=== PATIENT | female | born 1980 | race Caucasian/White ===

== ENCOUNTER 2019-09-22 16:20 | Emergency (ER) | payer BC ==
[2019-09-22 16:29] VITALS: BP 102/67; PULSE 70; TEMP 98.4; BMI 31.7
--- NOTE | 2019-09-22 16:29 | PDOC ---
Rapid Medical Evaluation Chief Complaint: Abscess Boil Time Seen by Provider: 09/22/19 16:28 Medical Evaluation: Allergies Allergy/AdvReac Type Severity Reaction Status Date / Time No Known Allergies Allergy Verified 03/22/12 03:30 09/22/19 16:29 I have performed a brief in-person evaluation of this patient. The patient presents with a chief complaint of: left axillary abscess, went to urgent care yesterday, started on amox Pertinent physical exam findings: abscess to L axilla I have ordered the following: nothing The patient will proceed to the ED for further evaluation. Discharge Disposition - Discharge Dispostion Condition at time of disposition: Stable - Referrals - Patient Instructions - Post Discharge Activity
[2019-09-22] MEDS ORDERED: ACETAMINOPHEN 325 MG TABLET (FP) PO ONE (16:50)
--- NOTE | 2019-09-22 16:53 | PDOC ---
History of Present Illness - General Chief Complaint: Abscess Boil Stated Complaint: CIST LEFT ARMPIT Time Seen by Provider: 09/22/19 16:28 History Source: Patient - History of Present Illness Initial Comments: 09/22/19 17:51 Chief complaint: Abscess to the left axilla Patient is a 39-year-old female with history of axillar abscesses who has a swollen area to the left axilla, she was seen by her doctor, started on amoxicillin as per patient and has an appointment with the surgeon tomorrow. Patient got concerned because he came more painful and the pain went into her chest. Patient has no fever. Patient has not taken any pain medicine. GENERAL/CONSTITUTIONAL: No fever, weakness. dizziness HEAD, EYES, EARS, NOSE AND THROAT: No change in vision. No ear pain or discharge. No sore throat. CARDIOVASCULAR: No chest pain RESPIRATORY: No shortness of breath or cough GASTROINTESTINAL: No pain, nausea, vomiting, diarrhea or constipation GENITOURINARY: No dysuria MUSCULOSKELETAL: No neck or back pain SKIN: No rash, + abscess NEUROLOGIC: No headache, vertigo, loss of consciousness, or loss of sensation. GENERAL: The patient is awake, alert, and fully oriented, in no acute distress. HEAD: Normal with no signs of trauma. EYES: Pupils equal, round and reactive to light, sclera anicteric, conjunctiva clear. ENT: pharynx: no erythema, no exudate, uvula midline NECK: supple CHEST: clear, nontender, rr ABD: soft, nontender BACK: no tenderness or signs of injury EXTREMITIES: Left axilla with mild swelling, no erythema, no obvious fluctuance. No cellulitis or arm swelling, neurovascular intact. Rest of extremities, normal range of motion, no edema. NEUROLOGICAL: Normal speech, normal gait. SKIN: Warm, Dry Past History - Past Medical History Allergies/Adverse Reactions: Allergies Allergy/AdvReac Type Severity Reaction Status Date / Time No Known Allergies Allergy Verified 03/22/12 03:30 Home Medications: Ambulatory Orders Amox-Tr/K Cl [Augmentin 875Mg] 1 each PO BID@0800,1730 #20 tablet 03/22/12 Naproxen Sodium [Naprelan] 500 mg PO BID 03/22/12 Oxycodone HCl/Acetaminophen [Percocet 7.5-325 mg Tablet] 1 each PO Q4HWA #0 tablet 04/30/12 COPD: No - Immunization History Td Vaccination: Yes - Psycho Social/Smoking Cessation Hx Smoking Status: No Smoking History: Never smoked Have you smoked in the past 12 months: No Number of Cigarettes Smoked Daily: 0 Information on smoking cessation initiated: No Hx Alcohol Use: No Drug/Substance Use Hx: No *Physical Exam - Vital Signs Last Vital Signs Temp Pulse Resp BP Pulse Ox 98.4 F 70 18 102/67 96 09/22/19 16:26 09/22/19 16:26 09/22/19 16:26 09/22/19 16:26 09/22/19 16:26 Medical Decision Making - Medical Decision Making 09/22/19 17:54 39-year-old female with abscess to the axilla, has appointment with surgeon tomorrow who came to the ER because of pain. Patient is on an antibiotic, did not take any pain medicine. There are no signs of gross cellulitis or concerning clinical exam. No indication for procedure to be done today in the ER versus in the office with the surgeon. Patient counseled that she can take pain medicine. Patient was concerned that the abscess would "burst" or that the chest pain was not related to the abscess although it is right in the area where the abscesses. No indication for further work-up. Patient was offered pain medicine which she accepted she was given Tylenol. Discussed issues, findings, results, applicable medications and treatments and follow-up. All these were understood and all questions were answered Discharge - Discharge Information Problems reviewed: Yes Clinical Impression/Diagnosis: Pain Condition: Stable Disposition: HOME - Admission No - Follow up/Referral Referrals: Lynette Carey [Primary Care Provider] - - Patient Discharge Instructions Patient Printed Discharge Instructions: DI for Incision and Drainage of a Skin Abscess Additional Instructions: You can take either Tylenol 650 mg every 4 hours or Motrin 600 mg every 6 hours for pain. Keep your appointment with Dr. Sams for tomorrow, he will do the procedure on your abscess. - Post Discharge Activity
[2019-09-22] MEDS ORDERED: ACETAMINOPHEN 325 MG TABLET (FP) ONE (16:54)
== END 2019-09-22 16:58 | disposition home or self-care (01) ==
LOC: JERFT 16:20
DX: L02.412 Cutaneous abscess of left axilla (principal)
CPT/HCPCS: 99281-25

== ENCOUNTER 2021-03-08 17:44 | Emergency (ER) | payer BC ==
[2021-03-08 18:06] VITALS: TEMP 98.5; BMI 30.9
[2021-03-08] MEDS ORDERED: SODIUM CHLORIDE 1,000 ML IV STA (19:02)
[2021-03-08] MEDS ORDERED: ACETAMINOPHEN 1000 MG/100 ML VIAL (NON FORMULARY) IVPB ONE (19:02)
[2021-03-08] MEDS ORDERED: ACETAMINOPHEN INJECTION 100 ML IVPB ONE (19:28)
[2021-03-08 20:29] LABS: BASO % 0.4 % (0-2.0); EOS % 0.7 % (0-4.5); HEMATOCRIT 37.5 % (32.4-45.2); HEMOGLOBIN 12.2 GM/dL (10.7-15.3); LYMPH % 21.2 % (8-40); MCH 25.1 pg (25.7-33.7); MCHC 32.6 g/dl (32.0-36.0); MEAN CELL VOLUME 77.2 fl (80-96); MEAN PLT VOLUME 9.4 fl (7.5-11.1); MONO % 5.4 % (3.8-10.2); NEUT % 72.3 % (42.8-82.8); PLATELET COUNT 324 K/MM3 (134-434); RBC 4.85 M/mm3 (3.60-5.2); RDW 14.3 % (11.6-15.6); WHITE BLOOD COUNT 10.1 K/mm3 (4.0-10.0)
[2021-03-08 20:32] LABS: PH,URINE 6.5 (5.0-8.0); URINE APPEARANCE CLEAR; URINE BILIRUBIN NEGATIVE (NEGATIVE); URINE COLOR YELLOW; URINE GLUCOSE (UA) NEGATIVE (NEGATIVE); URINE KETONE NEGATIVE (NEGATIVE); URINE LEUK ESTERASE NEGATIVE (NEGATIVE); URINE NITRITE NEGATIVE (NEGATIVE); URINE PROTEIN NEGATIVE (NEGATIVE); URINE UROBILINOGEN 0.2 mg/dL (0.2-1.0)
[2021-03-08 20:36] LABS: INR 1.04 (0.83-1.09); PROTHROMBIN TIME (PATIENT) 12.8 SEC (9.7-13.0)
[2021-03-08 20:39] LABS: ACTIVATED PTT 31.7 SECONDS (25.2-36.5)
[2021-03-08 21:01] LABS: ALBUMIN 4.4 g/dl (3.4-5.0); BLOOD UREA NITROGEN 7.4 mg/dL (7-18); CALCIUM 9.5 mg/dL (8.5-10.1)
[2021-03-08 21:04] LABS: CREATININE 0.9 mg/dL (0.55-1.3)
[2021-03-08 21:05] LABS: BILIRUBIN,TOTAL 0.5 mg/dL (0.2-1)
[2021-03-08 21:06] LABS: TOT PROT 7.5 g/dl (6.4-8.2)
[2021-03-08] MEDS ORDERED: morphine CARPU-JECT 4 MG/1 ML DISP.SYRIN IVPUSH ONE (23:08)
[2021-03-08] MEDS ORDERED: morphine SULFATE 4 MG/ML VIAL ONE (23:13)
[2021-03-08 23:25] VITALS: BP 138/87; PULSE 60
[2021-03-09] MEDS ORDERED: KETOROLAC TROMETHAMINE 15 MG/ML VIAL IVPUSH ONE (00:15)
[2021-03-09] MEDS ORDERED: LIDOCAINE 5% TOPICAL PATCH TP ONE (00:16)
[2021-03-09] MEDS ORDERED: KETOROLAC TROMETHAMINE 15 MG/ML VIAL ONE (00:38)
[2021-03-09] MEDS ORDERED: LIDOCAINE 5% TOPICAL PATCH ONE (00:38)
[2021-03-09] MEDS ORDERED: LIDOCAINE PATCH REMOVAL MC SCH (22:00)
== END 2021-03-09 00:52 | disposition home or self-care (01) ==
LOC: JER 17:44
PROC: 3E0333Z Introduction of Anti-inflammatory into Peripheral Vein, Percutaneous Approach (ICD-10-PCS; principal; 2021-03-08)
PROC: 3E0333Z Introduction of Anti-inflammatory into Peripheral Vein, Percutaneous Approach (ICD-10-PCS; 2021-03-08)
PROC: 3E033NZ Introduction of Analgesics, Hypnotics, Sedatives into Peripheral Vein, Percutaneous Approach (ICD-10-PCS; 2021-03-08)
PROC: 3E0337Z Introduction of Electrolytic and Water Balance Substance into Peripheral Vein, Percutaneous Approach (ICD-10-PCS; 2021-03-08)
DX: M54.5 Low back pain (principal); N83.202 Unspecified ovarian cyst, left side; R10.84 Generalized abdominal pain
CPT/HCPCS: 36415; 72131-TC; 74177-TC; 80053; 81003; 83605; 83690; 84703; 85025; 85610; 85651; 85730; 86140; 87086; 93005; 93010; 99285-25; J0131; Q9967

== ENCOUNTER 2024-05-09 18:51 | Emergency (ER) | payer BC, OTHER ==
[2024-05-09 18:59] VITALS: BP 110/75; PULSE 88; RESP 20; TEMP 98.2; BMI 37.4
[2024-05-09] MEDS ORDERED: LIDOCAINE 5% TOPICAL PATCH ONE (20:04)
[2024-05-09] MEDS ORDERED: ACETAMINOPHEN INJECTION 100 ML IVPB ONE (20:04)
[2024-05-09] MEDS: ACETAMINOPHEN 1000 MG/100 ML BAG IVPB ONE (20:34)
[2024-05-09] MEDS: SODIUM CHLORIDE 0.9% 500 ML INFUS.BAG IV ONE (20:34)
[2024-05-09] MEDS: LIDOCAINE 5% TOPICAL PATCH TP ONE (20:34)
[2024-05-09 20:38] LABS: BASO % 0.4 % (0-2.0); EOS % 1.3 % (0-4.5); HEMATOCRIT 29.4 % (32.4-45.2); HEMOGLOBIN 8.9 GM/dL (10.7-15.3); LYMPH % 23.8 % (8-40); MCHC 30.3 g/dl (32.0-36.0); MEAN CELL VOLUME 57.6 fl (80-96); MEAN PLT VOLUME 8.3 fl (7.5-11.1); MONO % 7.1 % (3.8-10.2); NEUT % 67.4 % (42.8-82.8); PLATELET COUNT 400 10^3/uL (134-434); RBC 5.11 M/mm3 (3.60-5.2); RDW 19.8 % (11.6-15.6); WHITE BLOOD COUNT 9.5 K/mm3 (4.0-10.0)
[2024-05-09 20:39] LABS: PH,URINE 5.5 (5.0-8.0); URINE APPEARANCE CLEAR; URINE BILIRUBIN NEGATIVE (NEGATIVE); URINE COLOR YELLOW; URINE GLUCOSE (UA) NEGATIVE (NEGATIVE); URINE KETONE TRACE (NEGATIVE); URINE LEUK ESTERASE NEGATIVE (NEGATIVE); URINE NITRITE NEGATIVE (NEGATIVE); URINE PROTEIN NEGATIVE (NEGATIVE); URINE UROBILINOGEN 0.2 mg/dL (0.2-1.0)
[2024-05-09 20:52] LABS: MCH 17.5 pg (25.7-33.7)
[2024-05-09 20:59] LABS: POTASSIUM 4.1 mmol/L (3.5-5.1)
[2024-05-09 21:02] LABS: BLOOD UREA NITROGEN 14.6 mg/dL (7-18)
[2024-05-09 21:04] LABS: CREATININE 0.9 mg/dL (0.55-1.3)
[2024-05-09 21:07] LABS: BILIRUBIN,TOTAL 0.2 mg/dL (0.2-1); TOT PROT 7.2 g/dl (6.4-8.2)
[2024-05-09 22:25] LABS: ANISOCYTOSIS 1+; MACROCYTOSIS 0; PLATELET ESTIMATE INCREASED
[2024-05-10] MEDS ORDERED: LIDOCAINE PATCH REMOVAL MC SCH (08:00)
== END 2024-05-09 23:31 | disposition home or self-care (01) ==
LOC: JER 18:51
PROC: 3E033NZ Introduction of Analgesics, Hypnotics, Sedatives into Peripheral Vein, Percutaneous Approach (ICD-10-PCS; principal; 2024-05-09)
DX: R10.31 Right lower quadrant pain (principal); M54.50 Low back pain, unspecified
CPT/HCPCS: 36415; 76830-TC; 80053; 81003; 83690; 84703; 85025; 86850; 86900; 86901; 87086; 87491; 87591; 87661; 93005; 93010; 96374; 99285-25; J0131